=== PATIENT | female | born 2005 | race African-American/Black ===

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

== ENCOUNTER 2023-01-20 00:41 | Emergency (ER) | payer SELFPAY ==
[2023-01-20] MEDS ORDERED: Albuterol 0.083% 2.5 MG/3 ML Neb Soln NEB ONE (01:08)
[2023-01-20 02:01] LABS: CORONAVIRUS COVID-19 NAA NEGATIVE (NEGATIVE); INFLUENZA A NAA NEGATIVE (NEGATIVE); RESPIRATORY SYNCYTIAL VIR NAA NEGATIVE (NEGATIVE)
[2023-01-20] MEDS ORDERED: Albuterol 6.7 GM Inhaler INH ONE (02:19)
[2023-01-20 03:02] VITALS: BP 112/50; PULSE 117
== END 2023-01-20 03:00 | disposition home or self-care (01) ==
LOC: JD.ED 00:41
DX: O99.511 Diseases of the respiratory system complicating pregnancy, first trimester (principal); J45.909 Unspecified asthma, uncomplicated; Z3A.09 9 weeks gestation of pregnancy
CPT/HCPCS: 0241U; 94640; 99285; A9270; 99283; J7620-GY

== ENCOUNTER 2023-03-04 17:29 | Emergency (ER) | payer SELFPAY ==
[2023-03-04 17:45] VITALS: BP 101/56; PULSE 71
[2023-03-04] MEDS ORDERED: Metoclopramide 10 MG/2 ML SDV IVPUSH ONE (18:01)
[2023-03-04] MEDS ORDERED: Lactated Ringers 1,000 ML IV SCH (18:15)
[2023-03-04 18:16] LABS: APPEARANCE,URINE CLEAR (Clear); BILIRUBIN,URINE NEGATIVE (Negative); COLOR,URINE YELLOW (Yellow); GLUCOSE,URINE NEGATIVE (Negative); KETONES,URINE 1+ (Negative); LEUKOCYTE ESTERASE,URINE NEGATIVE (Negative); NITRITE,URINE NEGATIVE (Negative); OCCULT BLOOD,URINE NEGATIVE (Negative); PH,URINE 6.5 (5.0-8.0); PROTEIN,URINE 1+ (Negative); UROBILINOGEN,URINE 0.2 (0.2-1.0)
[2023-03-04 18:39] LABS: BACTERIA,URINE MODERATE /hpf (FEW); MUCUS,URINE MODERATE /hpf (FEW); RBC,URINE 0-5 /hpf (0-5); WBC,URINE 0-5 /hpf (0-5)
[2023-03-04 19:00] LABS: BASOPHILS PERCENT AUTO 0.3 % (0.0-1.0); EOSINOPHILS ABSOLUTE AUTO 0.2 K/mm3 (0.0-0.7); EOSINOPHILS PERCENT AUTO 1.4 % (0.0-5.0); HEMATOCRIT 35.8 % (37.0-47.0); HEMOGLOBIN 11.9 gm/dl (12.0-16.0); IMMATURE GRAN ABSOLUTE AUTO 0.05 K/mm3 (0.00-0.05); IMMATURE GRAN PERCENT AUTO 0.4 % (0.0-0.4); LYMPHOCYTES ABSOLUTE AUTO 2.6 K/mm3 (2.0-8.8); LYMPHOCYTES PERCENT AUTO 22.7 % (50.0-65.0); MEAN CORPUSCULAR HEMOGLOBIN 25.3 pg (28.0-32.0); MEAN CORPUSCULAR HGB CONC 33.2 g/dl (32.0-36.0); MONOCYTES ABSOLUTE AUTO 0.7 K/mm3 (0.1-1.4); MONOCYTES PERCENT AUTO 5.8 % (2.0-10.0); NEUTROPHILS ABSOLUTE AUTO 7.9 K/mm3 (1.5-8.5); NEUTROPHILS PERCENT AUTO 69.4 % (35.0-45.0); PLATELET COUNT,PLT 283 K/mm3 (150-400); RED BLOOD CELL COUNT 4.71 M/mm3 (4.10-5.30)
[2023-03-04 19:14] LABS: A/G RATIO 0.9 (1-2); ALBUMIN 3.6 g/dl (3.4-5.0); ANION GAP 17.6 (5-15); BILIRUBIN TOTAL 0.4 mg/dL (0.2-1.0); BUN/CREATININE RATIO 11.7 (14-18); CREATININE 0.6 mg/dL (0.55-1.02); EST CRCL DRUG DOSING (CG) 130.23 mL/min; POTASSIUM,K 3.6 mEq/L (3.5-5.1); PROTEIN TOTAL,TP 7.6 g/dl (6.4-8.2)
== END 2023-03-04 19:34 | disposition home or self-care (01) ==
LOC: JD.ED 17:29
DX: O21.9 Vomiting of pregnancy, unspecified (principal); F17.210 Nicotine dependence, cigarettes, uncomplicated; Z3A.15 15 weeks gestation of pregnancy
CPT/HCPCS: 36415; 80053; 81001; 85025; 96361; 96374; 99284; J2765; J7120; 99283

== ENCOUNTER 2023-08-02 02:55 | Emergency (ER) | payer SELFPAY ==
[2023-08-02 03:17] VITALS: BP 125/87; PULSE 68
== END 2023-08-02 03:17 | disposition home or self-care (01) ==
LOC: JD.ED 02:55
DX: K08.89 Other specified disorders of teeth and supporting structures (principal)
CPT/HCPCS: 99282

== ENCOUNTER 2023-08-18 10:07 | Inpatient (IN) | payer SELFPAY ==
[2023-08-18] MEDS ORDERED: Lidocaine 1% 50 ML MDV INJECT PRN (10:49)
[2023-08-18] MEDS ORDERED: Sodium Chloride 0.9% 10 ML Syringe FLUSH PRN (10:49)
[2023-08-18] MEDS ORDERED: Nalbuphine 10 MG/ML Syringe IVPUSH PRN (10:49)
[2023-08-18] MEDS ORDERED: Oxytocin/Lactated Ringers 30 UNIT/500 ML BAG IV SCH (11:00)
[2023-08-18] MEDS: Ampicillin 2 GM in Sodium Chloride 0.9% 100 ML IV ONE (11:13)
[2023-08-18] MEDS: Lactated Ringers 1,000 ML IV SCH (11:13)
[2023-08-18 11:17] LABS: HEMATOCRIT 30.8 % (37.0-47.0); MEAN CORPUSCULAR HEMOGLOBIN 24.4 pg (28.0-32.0); MEAN CORPUSCULAR HGB CONC 32.5 g/dl (32.0-36.0); MEAN CORPUSCULAR VOLUME 75.1 fl (83.0-99.0); MEAN PLATELET VOLUME 11.3 fl (9.4-12.3); PLATELET COUNT,PLT 182 K/mm3 (150-400); WHITE BLOOD CELL COUNT,WBC 7.79 K/mm3 (4.5-13.5)
[2023-08-18 11:40] LABS: BAND PERCENT MAN 1 % (0-10); BASOPHILS PERCENT MAN 0 (0.1-1.2); EOSINOPHILS PERCENT MAN 3 % (0.7-5.8); LYMPHOCYTES % ATYPICAL MANUAL 9 %; LYMPHOCYTES PERCENT MAN 29 % (20-40); MONOCYTES PERCENT MAN 9 % (2-10)
[2023-08-18 11:41] LABS: MICROCYTOSIS 2+ MODERATE; PLATELET COUNT ESTIMATE ADEQUATE
[2023-08-18 14:07] LABS: C. TRACHOMATIS BY PCR NOT DETECTED; N. GONORRHOEAE BY PCR NOT DETECTED
[2023-08-18] MEDS: Ampicillin 1 GM in Sodium Chloride 0.9% 100 ML IV SCH (15:33)
[2023-08-18] MEDS: Ondansetron 4 MG/2 ML SDV IVPUSH PRN (15:40)
[2023-08-18] MEDS: Oxytocin/Lactated Ringers 30 UNIT/500 ML BAG IV SCH (20:29)
[2023-08-18] MEDS ORDERED: Sodium Chloride 0.9% 10 ML Syringe FLUSH SCH (21:00)
[2023-08-19] MEDS ORDERED: Witch Hazel Medicated Pads 40/Jar TOP PRN (04:05)
[2023-08-19] MEDS ORDERED: Benzocaine/Menthol 20%-0.5% Spray 78 GM Cannister TOP PRN (04:05)
[2023-08-20 10:37] VITALS: BP 132/82; PULSE 69
== END 2023-08-20 10:15 | disposition home or self-care (01) | DRG 807 ==
LOC: JD.OBCHECK 10:07 → JD.OB 10:10 → JD.OBCHECK 10:49 → JD.OB 10:49 → OBSVTOIN 20:19 → JD.OB 20:20
PROVIDERS: ADMIT Obstetrics & Gynecology; ATTEND Obstetrics & Gynecology
PROC: 10E0XZZ Delivery of Products of Conception, External Approach (ICD-10-PCS; principal; 2023-08-18)
PROC: 10907ZC Drainage of Amniotic Fluid, Therapeutic from Products of Conception, Via Natural or Artificial Opening (ICD-10-PCS; 2023-08-18)
DX: O66.0 Obstructed labor due to shoulder dystocia (principal); Z37.0 Single live birth; Z3A.39 39 weeks gestation of pregnancy
CPT/HCPCS: 36415; 59025; 59409; 85007; 85027; 86592; 87491; 87591; J0290; J2405; J3490; J7120; J7999

== ENCOUNTER 2024-11-29 14:42 | Emergency (ER) | payer SELFPAY ==
[2024-11-29] MEDS: Ondansetron 4 MG/2 ML SDV IVPUSH ONE ×2 (15:43→15:44)
[2024-11-29 16:28] LABS: A/G RATIO 0.7 (1-2); ALANINE AMINOTRANSFERASE,ALT 15.0 U/L (14-59); ASPARTATE AMNIOTRANSFERASE,AST 23.0 U/L (15-37); BILIRUBIN TOTAL 0.6 mg/dL (0.2-1.0); BLOOD UREA NITROGEN,BUN 5.0 mg/dL (7-18); CARBON DIOXIDE,CO2 24.0 mEq/L (21-32); CHLORIDE,CL 102.0 mEq/L (98-107); CREATININE 0.6 mg/dL (0.55-1.02); EST CRCL DRUG DOSING (CG) 122.69 mL/min; ESTIMATED GFR 131.0 mL/min (>60); GLUCOSE RANDOM 79.0 mg/dL (70-99); POTASSIUM,K 3.3 mEq/L (3.5-5.1); PROTEIN TOTAL,TP 8.1 g/dl (6.4-8.2); SODIUM,NA 138.0 mEq/L (136-145)
[2024-11-29 16:29] LABS: BASOPHILS ABSOLUTE AUTO 0.0 K/mm3 (0.0-0.2); BASOPHILS PERCENT AUTO 0.2 % (0.0-1.0); EOSINOPHILS ABSOLUTE AUTO 0.1 K/mm3 (0.0-0.4); EOSINOPHILS PERCENT AUTO 0.8 % (0.0-6.0); IMMATURE GRAN ABSOLUTE AUTO 0.05 K/mm3 (0.00-0.05); IMMATURE GRAN PERCENT AUTO 0.5 % (0.0-0.4); LYMPHOCYTES ABSOLUTE AUTO 2.6 K/mm3 (1.0-4.8); LYMPHOCYTES PERCENT AUTO 25.6 % (24.0-44.0); MONOCYTES ABSOLUTE AUTO 0.4 K/mm3 (0.0-0.8); MONOCYTES PERCENT AUTO 4.3 % (0.0-8.0); NEUTROPHILS ABSOLUTE AUTO 7.0 K/mm3 (1.8-7.7); NEUTROPHILS PERCENT AUTO 68.6 % (41.0-71.0); NRBC ABSOLUTE 0.00 (0.00-0.02); NRBC PERCENT 0.0 % (0.0-0.2); PLATELET COUNT,PLT 235 K/mm3 (150-400); RED BLOOD CELL COUNT 5.17 M/mm3 (4.10-5.30); WHITE BLOOD CELL COUNT,WBC 10.20 K/mm3 (3.9-11.3)
[2024-11-29] MEDS: Potassium Chloride 20 MEQ Tab.ER PO ONE (17:09)
[2024-11-29 17:25] LABS: APPEARANCE,URINE CLEAR (Clear); GLUCOSE,URINE NEGATIVE (Negative); OCCULT BLOOD,URINE NEGATIVE (Negative)
[2024-11-29 17:30] LABS: BUPRENORPHINE SCREEN,URINE NEGATIVE (CUTOFF=10); METHADONE SCREEN, URINE NEGATIVE (CUTOFF=200); METHAMPHETAMINES SCREEN, URINE NEGATIVE (CUTOFF=500); OXYCODONE SCREEN,URINE NEGATIVE (CUT0FF=100); THC SCREEN,URINE 20 NG/ML PRESUMPTIVE POSITIVE (CUTOFF=50)
[2024-11-29 17:34] LABS: AMPHETAMINES SCREEN, URINE NEGATIVE (CUTOFF=500)
[2024-11-29 17:38] LABS: SQUAMOUS EPITHELIAL CELLS,UR 0-5 /hpf (0-5)
[2024-11-29 18:21] VITALS: BP 117/65; PULSE 75
== END 2024-11-29 18:15 | disposition home or self-care (01) ==
LOC: JD.ED 14:42
DX: O99.283 Endocrine, nutritional and metabolic diseases complicating pregnancy, third trimester (principal); E87.6 Hypokalemia; E83.42 Hypomagnesemia; O21.9 Vomiting of pregnancy, unspecified; Z3A.37 37 weeks gestation of pregnancy
CPT/HCPCS: 36415; 80053; 80306; 81001; 83690; 83735; 85025; 96361; 96365; 96375; 99284; A9270; J2405; J3475; J7030

== ENCOUNTER 2024-12-03 10:32 | Inpatient (IN) | payer SELFPAY ==
[2024-12-03] MEDS ORDERED: Nalbuphine 10 MG/1 ML Vial IVPUSH PRN ×2 (10:55→11:18)
[2024-12-03] MEDS ORDERED: Ondansetron 4 MG/2 ML SDV IVPUSH PRN ×2 (10:55→11:18)
[2024-12-03] MEDS ORDERED: Lactated Ringers 1,000 ML IV SCH (11:00)
[2024-12-03] MEDS ORDERED: Sodium Chloride 0.9% 10 ML Syringe FLUSH PRN (11:18)
[2024-12-03 11:30] LABS: BASOPHILS ABSOLUTE AUTO 0.0 K/mm3 (0.0-0.2); BASOPHILS PERCENT AUTO 0.2 % (0.0-1.0); EOSINOPHILS ABSOLUTE AUTO 0.1 K/mm3 (0.0-0.4); EOSINOPHILS PERCENT AUTO 1.6 % (0.0-6.0); IMMATURE GRAN ABSOLUTE AUTO 0.03 K/mm3 (0.00-0.05); IMMATURE GRAN PERCENT AUTO 0.4 % (0.0-0.4); LYMPHOCYTES ABSOLUTE AUTO 3.5 K/mm3 (1.0-4.8); LYMPHOCYTES PERCENT AUTO 42.4 % (24.0-44.0); MEAN PLATELET VOLUME 10.8 fl (9.4-12.3); MONOCYTES ABSOLUTE AUTO 0.6 K/mm3 (0.0-0.8); MONOCYTES PERCENT AUTO 7.2 % (0.0-8.0); NEUTROPHILS ABSOLUTE AUTO 3.9 K/mm3 (1.8-7.7); NEUTROPHILS PERCENT AUTO 48.2 % (41.0-71.0); NRBC ABSOLUTE 0.00 (0.00-0.02); NRBC PERCENT 0.0 % (0.0-0.2); PLATELET COUNT,PLT 190 K/mm3 (150-400); RED BLOOD CELL COUNT 4.10 M/mm3 (4.10-5.30); WHITE BLOOD CELL COUNT,WBC 8.16 K/mm3 (3.9-11.3)
[2024-12-03] MEDS: Lactated Ringers 1,000 ML IV SCH (11:32)
[2024-12-03] MEDS: Oxytocin/0.9 % Sodium Chloride 30 UNIT/500 ML BAG IV SCH (11:40)
[2024-12-03] MEDS: Benzocaine/Menthol 20%-0.5% Spray 78 GM Cannister TOP PRN (15:30)
[2024-12-03] MEDS: Witch Hazel Medicated Pads 40/Jar TOP PRN (15:30)
[2024-12-03] MEDS ORDERED: Sodium Chloride 0.9% 10 ML Syringe FLUSH SCH (21:00)
[2024-12-04 17:09] VITALS: BP 126/80; PULSE 72
[2024-12-05 08:28] LABS: GROUP B STREP BY PCR NEGATIVE (NEGATIVE)
== END 2024-12-04 17:20 | disposition home or self-care (01) | DRG 807 ==
LOC: JD.OBCHECK 10:32 → JD.OB 10:33 → OBSVTOIN 10:55 → INTOOBSV 10:55 → JD.OBCHECK 10:55 → JD.OB 10:55 → OBSVTOIN 11:40 → JD.OB 11:41
PROVIDERS: ADMIT Obstetrics & Gynecology; ATTEND Obstetrics & Gynecology
PROC: 10E0XZZ Delivery of Products of Conception, External Approach (ICD-10-PCS; principal; 2024-12-03)
PROC: 4A1HXCZ Monitoring of Products of Conception, Cardiac Rate, External Approach (ICD-10-PCS; 2024-12-03)
PROC: 10907ZC Drainage of Amniotic Fluid, Therapeutic from Products of Conception, Via Natural or Artificial Opening (ICD-10-PCS; 2024-12-03)
DX: O80 Encounter for full-term uncomplicated delivery (principal); Z37.0 Single live birth; Z3A.38 38 weeks gestation of pregnancy
CPT/HCPCS: 36415; 59025; 59409; 85025; 86592; 87653; A9270-GY; J0290; J7120; J7999

== ENCOUNTER 2025-02-27 08:33 | Emergency (ER) | payer MEDICAID ==
[2025-02-27 08:47] VITALS: BP 138/87; PULSE 72
== END 2025-02-27 09:18 | disposition home or self-care (01) ==
LOC: JD.ED 08:33
DX: K02.9 Dental caries, unspecified (principal); Z79.899 Other long term (current) drug therapy
CPT/HCPCS: 99282

== ENCOUNTER 2025-04-02 22:31 | Emergency (ER) | payer BC, MEDICAID ==
[2025-04-02] MEDS: Ketorolac 30 MG/ML SDV IM ONE (23:43)
[2025-04-03 00:07] VITALS: BP 121/82; PULSE 78
== END 2025-04-03 00:05 | disposition home or self-care (01) ==
LOC: JD.ED 22:31
DX: K02.9 Dental caries, unspecified (principal); K08.89 Other specified disorders of teeth and supporting structures; Z79.899 Other long term (current) drug therapy
CPT/HCPCS: 96372; 99282; A9270; J1885